=== PATIENT | male | born 1975 | race Caucasian/White ===

== ENCOUNTER 2018-10-26 13:04 | Emergency (ER) | payer MEDICAID ==
[2018-10-26 13:17] VITALS: BP 164/118
[2018-10-26] MEDS ORDERED: LISINOPRIL 5 MG TABLET PO STA (13:31)
--- NOTE | 2018-10-26 13:51 | ED Physician Documentation ---
PD HPI HEADACHE - Stated complaint Stated Complaint: HEADACHE - Chief complaint Chief Complaint: Neuro - History obtained from History obtained from: Patient - History of Present Illness Timing - onset: How many weeks ago (1) Timing - onset during: Rest Timing - duration: Weeks (1) Timing - details: Gradual onset, Still present, Waxing and waning Worst headache ever?: No: Worst headache ever? Location: Front, Right Quality: Throbbing Associated symptoms: No: Fever, Stiff neck, Nausea, Vomiting Improved by: Rest Similar symptoms before: Has not had sx before Recently seen: Not recently seen - Additional information Additional information: 43-year-old male with history of hypertension has been off of his lisinopril for the past 3 weeks he is recently moved to the area has not reestablished care. He has developed headache associated with this. He has some throbbing in the right hemicranial area he has no other specific symptoms she is not nauseated he does not have photophobia or numbness or tingling. Review of Systems Constitutional: denies: Fever Eyes: denies: Decreased vision Ears: denies: Ear pain Nose: denies: Rhinorrhea / runny nose, Congestion Throat: denies: Sore throat Cardiac: denies: Chest pain / pressure, Palpitations Respiratory: denies: Dyspnea, Cough GI: denies: Abdominal Pain, Nausea, Vomiting : denies: Dysuria, Frequency Skin: denies: Rash Musculoskeletal: denies: Neck pain, Back pain, Extremity pain Neurologic: reports: Headache. denies: Generalized weakness, Focal weakness, Numbness, Head injury, LOC PD PAST MEDICAL HISTORY - Past Medical History Past Medical History: Yes Cardiovascular: Hypertension - Present Medications Home Medications: Ambulatory Orders Medication Instructions Recorded Confirmed Lisinopril 40 mg PO DAILY #30 tablet 10/26/18 Lisinopril [Prinivil] 20 mg PO DAILY 10/26/18 10/26/18 - Allergies Allergies/Adverse Reactions: Allergies Allergy/AdvReac Type Severity Reaction Status Date / Time No Known Drug Allergies Allergy Verified 10/26/18 13:17 - Social History Does the pt smoke?: No Smoking Status: Never smoker PD ED PE NORMAL - Vitals Vital signs reviewed: Yes (hypertensive marked diastolic ) - General General: Alert and oriented X 3, No acute distress, Well developed/nourished - HEENT HEENT: Atraumatic, PERRL, EOMI, Ears normal, Moist mucous membranes, Pharynx benign, Dentition benign - Neck Neck: Supple, no meningeal sign, No bony TTP - Cardiac Cardiac: RRR, No murmur - Respiratory Respiratory: No respiratory distress, Clear bilaterally - Abdomen Abdomen: Soft, Non tender - Back Back: No CVA TTP, No spinal TTP - Derm Derm: Normal color, Warm and dry, No rash - Extremities Extremities: No deformity, No edema - Neuro Neuro: Alert and oriented X 3, solderer 2-12 intact, No motor deficit, No sensory deficit, Normal speech Eye Opening: Spontaneous Motor: Obeys Commands Verbal: Oriented GCS Score: 15 - Psych Psych: Normal mood, Normal affect Results - Vitals Vitals: Vital Signs - 24 hr 10/26/18 13:15 Temperature 36.4 C L Heart Rate 89 Respiratory 20 Rate Blood Pressure 164/118 H O2 Saturation 98 Oxygen O2 Source Room air PD MEDICAL DECISION MAKING - ED course Complexity details: considered differential, d/w patient, d/w family ED course: 43-year-old male new to the area has run out of his lisinopril he is not been able to get it refilled and he now has headache. He states that his lisinopril never adequately controlled his blood pressure and he brings in a picture of some Norvasc that his mother takes and she is on night lisinopril as well and he states that it took her 2 agents to control her blood pressure. Here in the emergency department the patient is administered lisinopril 40 mg orally and I have asked him to follow-up with a clinic in [place] for reevaluation within the next 3 weeks and to consider at that point an additional agent if he does not have adequate control. Departure - Departure Disposition: Home, Self Care Clinical Impression: HTN (hypertension) Qualifiers: Hypertension type: unspecified Qualified Code(s): I10 - Essential (primary) hypertension Condition: Stable Instructions: ED Hypertension Conf Out Of Control Follow-Up: [facility] [Provider Group] [facility] [Provider Group] Prescriptions: Lisinopril 40 mg PO DAILY #30 tablet
== END 2018-10-26 13:57 | disposition home or self-care (01) ==
LOC: ED 13:04
DX: I10 Essential (primary) hypertension (principal)
CPT/HCPCS: 99281; 99284; A9270

== ENCOUNTER 2019-03-24 12:39 | Emergency (ER) | payer MEDICAID ==
--- NOTE | 2019-03-24 13:24 | ED Physician Documentation ---
History of Present Illness - Stated complaint Stated Complaint: BP MEDS - Chief complaint Chief Complaint: General - History obtained from History obtained from: Patient (43-year-old gentleman with longstanding hypertension. Because of some change in job and insurance he was lost to follow-up and has not had any blood pressure meds in about 3 months. Previously was on lisinopril, 20 mg a day and hydrochlorothiazide. Checked his blood pr essure today and it was high. He is been feeling flushed on and off but denies chest pain, pedal edema, shortness of breath, urinary difficulty.) Review of Systems Constitutional: denies: Fever, Chills, Fatigue Cardiac: denies: Chest pain / pressure, Palpitations Respiratory: denies: Dyspnea, Cough PD PAST MEDICAL HISTORY - Past Medical History Cardiovascular: Hypertension - Present Medications Home Medications: Ambulatory Orders Medication Instructions Recorded Confirmed Lisinopril 20 mg PO DAILY #90 tablet 03/24/19 hydroCHLOROthiazide 25 mg PO DAILY #90 tablet 03/24/19 [Hydrochlorothiazide] - Allergies Allergies/Adverse Reactions: Allergies Allergy/AdvReac Type Severity Reaction Status Date / Time No Known Drug Allergies Allergy Verified 03/24/19 12:48 - Social History Does the pt smoke?: No Smoking Status: Never smoker PD ED PE NORMAL - Vitals Vital signs reviewed: Yes - General General: Alert and oriented X 3, No acute distress - HEENT HEENT: PERRL, EOMI - Neck Neck: Supple, no meningeal sign, No bony TTP - Cardiac Cardiac: RRR, No murmur - Respiratory Respiratory: No respiratory distress, Clear bilaterally - Abdomen Abdomen: Non tender - Extremities Extremities: No edema, No calf tenderness / cord - Neuro Neuro: Alert and oriented X 3, Normal speech Results - Vitals Vitals: Vital Signs - 24 hr 03/24/19 12:46 Temperature 36.8 C Heart Rate 76 Respiratory 18 Rate Blood Pressure 201/99 H O2 Saturation 97 Oxygen O2 Source Room air - EKG (time done) 1324 Rate: Rate (enter#) (72) Rhythm: NSR Watts: Normal Intervals: Normal HI QRS: Normal Ischemia: Normal ST segments Computer interpretation: Agree with computer - Labs Labs: Laboratory Tests 03/24/19 13:25 Sodium 141 Potassium 3.8 Chloride 104 Carbon Dioxide 28 Anion Gap 9.0 BUN 14 Creatinine 1.0 Estimated GFR (MDRD) 81 L Glucose 110 H Calcium 9.6 Departure - Departure Disposition: 01 Home, Self Care Clinical Impression: Essential hypertension Condition: Good Record reviewed to determine appropriate education?: Yes Instructions: DASH Plan Eat Heart Healthy Food, ED Hypertension Conf Out Of Control Follow-Up: [facility] [Provider Group] [facility] [Provider Group] Prescriptions: hydroCHLOROthiazide [Hydrochlorothiazide] 25 mg PO DAILY #90 tablet Lisinopril 20 mg PO DAILY #90 tablet
[2019-03-24 13:41] LABS: CALCIUM 9.6 mg/dL (8.5-10.3)
[2019-03-24 13:53] VITALS: BP 185/110
== END 2019-03-24 13:52 | disposition home or self-care (01) ==
LOC: ED 12:39
DX: I10 Essential (primary) hypertension (principal); T46.4X6A Underdosing of angiotensin-converting-enzyme inhibitors, initial encounter; T50.2X6A Underdosing of carbonic-anhydrase inhibitors, benzothiadiazides and other diuretics, initial encounter; Z91.138 Patient's unintentional underdosing of medication regimen for other reason
CPT/HCPCS: 36415; 80048; 93005; 99283

== ENCOUNTER 2020-01-19 14:42 | Emergency (ER) | payer MEDICAID ==
--- NOTE | 2020-01-19 16:12 | ED Physician Documentation ---
History of Present Illness - Stated complaint Stated Complaint: HIGH BP - Chief complaint Chief Complaint: Cardiac - History obtained from History obtained from: Patient - History of Present Illness Timing: Chronic Pain level max: 0 Pain level now: 0 - Additonal information Additional information: 44-year-old male states that he has chronic hypertension. He was at the orthopedic office today when they took his blood pressure and told him it was high and he needed to go to the emergency department. Patient is fully asymptomatic. No headache. No visual changes. No neurological deficits. No chest pain. No shortness of breath. No other symptoms. He is currently on lisinopril 20 mg daily. He states his normal blood pressure is 170-180 systolic. Review of Systems Constitutional: denies: Fever, Chills Cardiac: denies: Chest pain / pressure Respiratory: denies: Dyspnea PD PAST MEDICAL HISTORY - Past Medical History Cardiovascular: Hypertension - Past Surgical History Past Surgical History: No - Present Medications Home Medications: Ambulatory Orders Medication Instructions Recorded Confirmed lisinopriL [Lisinopril] 20 mg PO DAILY #90 tablet 03/24/19 01/19/20 Lisinopril/Hydrochlorothiazide 1 tab PO DAILY #30 tablet 01/19/20 [Lisinopril-Hctz 20-12.5 mg Tab] - Allergies Allergies/Adverse Reactions: Allergies Allergy/AdvReac Type Severity Reaction Status Date / Time No Known Drug Allergies Allergy Verified 01/19/20 14:48 - Social History Does the pt smoke?: No Smoking Status: Never smoker Does the pt drink ETOH?: Yes Does the pt have substance abuse?: No - Immunizations Immunizations are current?: No PD ED PE NORMAL - Vitals Vital signs reviewed: Yes - General General: Alert and oriented X 3, No acute distress - HEENT HEENT: PERRL, Moist mucous membranes - Neck Neck: Supple, no meningeal sign, No JVD, No bruit - Cardiac Cardiac: RRR, Strong equal pulses - Respiratory Respiratory: No respiratory distress, Clear bilaterally - Abdomen Abdomen: Soft, Non tender, Non distended - Derm Derm: Warm and dry - Extremities Extremities: No edema, No calf tenderness / cord - Neuro Neuro: Alert and oriented X 3 - Psych Psych: Normal mood, Normal affect Results - Vitals Vitals: Vital Signs - 24 hr 01/19/20 01/19/20 14:48 16:21 Temperature 36.8 C 36.9 C Heart Rate 77 73 Respiratory 16 18 Rate Blood Pressure 193/125 H 195/129 H O2 Saturation 97 99 Oxygen O2 Source Room air PD MEDICAL DECISION MAKING - ED course Complexity details: considered differential, d/w patient ED course: Patient with asymptomatic hypertension. Normal physical exam. No emergency medical condition at this time. We will adjust his blood pressure medication and add hydrochlorothiazide to his lisinopril. He will also follow-up with his doctor for further evaluation and care. Patient is well-appearing, nontoxic. Afebrile. No chest pain. No shortness of breath. No evidence of stroke. No loss of vision. Patient counseled regarding signs and symptoms for which I believe and urgent re-evaluation would be necessary. Patient with good understanding of and agreement to plan and is comfortable going home at this time This document was made in part using voice recognition software. While efforts are made to proofread this document, sound alike and grammatical errors may occur. Departure - Departure Disposition: 01 Home, Self Care Clinical Impression: HTN (hypertension) Qualifiers: Hypertension type: unspecified Qualified Code(s): I10 - Essential (primary) hypertension Condition: Good Instructions: ED HTN Established Follow-Up: [facility] [Provider Group] [facility] [Provider Group] Prescriptions: Lisinopril/Hydrochlorothiazide [Lisinopril-Hctz 20-12.5 mg Tab] 1 tab PO DAILY #30 tablet Comments: We will change you to a combination lisinopril and hydrochlorothiazide tablet. Follow-up with a primary care provider within the next week or 2 to further adjust your medications. Return if you develop symptoms such as chest pain, shortness of breath, focal neurological deficits, changes in mental status, severe headaches, etc. Discharge Date/Time: 01/19/20 16:24
[2020-01-19 16:22] VITALS: BP 195/129
== END 2020-01-19 16:24 | disposition home or self-care (01) ==
LOC: ED 14:42
DX: I10 Essential (primary) hypertension (principal)
CPT/HCPCS: 99282; 99284

== ENCOUNTER 2020-02-06 08:00 | Outpatient (CLI) | payer MEDICAID ==
[2020-02-06 18:23] LABS: BASOPHILS # (AUTO) 0.1 10^3/uL (0.0-0.1); BASOPHILS % (AUTO) 0.7 %; EOSINOPHILS # (AUTO) 0.1 10^3/uL (0.0-0.7); HGB - HEMOGLOBIN 15.7 g/dL (14.0-18.0); LYMPHOCYTES # (AUTO) 2.6 10^3/uL (1.5-3.5); LYMPHOCYTES % (AUTO) 29.5 %; MEAN CORPUSCULAR HEMOGLOBIN 29.9 pg (27.0-31.0); MEAN CORPUSCULAR HGB CONC 33.5 g/dL (32.0-36.0); MEAN CORPUSCULAR VOLUME 89.3 fL (80.0-94.0); MEAN PLATELET VOLUME 10.1 fL (7.4-11.4); MONOCYTES # (AUTO) 0.7 10^3/uL (0.0-1.0); MONOCYTES % (AUTO) 7.7 %; NEUTROPHILS # (AUTO) 5.3 10^3/uL (1.5-6.6); NEUTROPHILS % (AUTO) 59.5 %; PLT - PLATELET COUNT 304 10^3/uL (130-450); RED BLOOD COUNT 5.25 10^6/uL (4.70-6.10); RED CELL DISTRIBUTION WIDTH 12.8 % (12.0-15.0); WHITE BLOOD COUNT 8.9 x10^3/uL (4.8-10.8)
[2020-02-06 18:58] LABS: ALBUMIN 4.9 g/dL (3.2-5.5); ALBUMIN/GLOBULIN RATIO 1.4 (1.0-2.2); ALKALINE PHOSPHATASE 65 IU/L (42-121); ALT ALANINE AMINOTRANSFERASE 37 IU/L (10-60); AST ASPARTATE AMINOTRANSFERASE 27 IU/L (10-42); BILIRUBIN,TOTAL 0.7 mg/dL (0.2-1.0); BUN - BLOOD UREA NITROGEN 16 mg/dL (6-20); CALCIUM 10.2 mg/dL (8.5-10.3); CARBON DIOXIDE - CO2 26 mmol/L (21-32); CHLORIDE 98 mmol/L (101-111); CHOL/HDL RATIO 5.1 (<5.0); CHOLESTEROL 240 mg/dL; GLUCOSE 98 mg/dL (70-100); HDL CHOLESTEROL 47 mg/dL; LDL CHOLESTEROL,CALCULATED 163 mg/dL; LDL/HDL RATIO 3.5 (<3.6); SODIUM 136 mmol/L (135-145); TOTAL PROTEIN 8.3 g/dL (6.7-8.2); VLDL CHOLESTEROL 30 mg/dL
== END 2020-02-06 23:59 | disposition home or self-care (01) ==
LOC: LAB.WCP 08:00
PROVIDERS: ATTEND Family Medicine
DX: Z00.00 Encounter for general adult medical examination without abnormal findings (principal); I10 Essential (primary) hypertension
CPT/HCPCS: 36415; 80050; 80061; 83721

== ENCOUNTER 2020-05-21 09:34 | Outpatient (CLI) | payer MEDICAID ==
[2020-05-21 10:11] VITALS: BP 150/100
--- NOTE | 2020-05-21 10:11 | SLEEP CARE CONSULTATION ---
Information from patient questionnaire entered by Kavita Monique. I have reviewed and concur with the information entered by Kavita Monique. This document represents the service I personally performed and the decisions made by me, Thalia Dumas ARNP. History of Present Illness Service Date and Time: 05/21/2020 0934 Reason for Visit: New patient Chief Complaint: reports: Unrefreshed sleep, Snoring, Observed pauses in breathing, Frequent awakenings at night, Other (nose bleeds for 13 yrs) Date of Onset: 30 years Usual bedtime: 10 pm Time it takes to fall asleep: 40 minutes Snores at night: Yes Observed to quit breathing while asleep: Yes Number of times waking at night: 2 Reasons for waking at night: reports: Snoring (according to but he doesn't remember), Bathroom. denies: Choking, Gasping for air Toss, Turn, or Twitch while sleeping: No Recalls having dreams: Yes Usually gets out of bed at: 6:30 am Feels refreshed in the morning: No Morning headache: No Sleepy or fatigued during the day: Yes Ever fallen asleep while driving: No Takes day naps: No Dreams during day naps: No Prior sleep studies: No Additional HPI information: I had the pleasure of seeing TREY HAGEN today regarding the possibility of him having a sleep disorder. His current complaint is snoring. He states he has had bloody noses for the last 13 years. He told his PCP and was referred to an ENT and here for evaluation of snoring. His tells him he snores and has pauses in breathing while sleeping. He has hypertension and is currently on 3 different blood pressure medications to try to control it. 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 Patient is and lives in [place]. Have you smoked in the past 12 months: No Alcohol use: Yes Alcohol amount and frequency: 2 drinks once per week Caffeine use: No Family History Family history of sleep disordered breathing: No Family Hx Sleep Apnea: Father: Snoring Allergies and Home Medications Drug allergies reviewed: Yes (NKDA) Home medication list reviewed: Yes Allergy and home medication list: Lisinopril Hydrochlorothiazide Metroprolol Review of Systems Weight loss over past 5 years: 10 Cardiovascular: reports: high blood pressure Gastrointestinal: denies: heartburn Neurological: denies: headaches Psychiatric: denies: anxiety, depression Ear/Nose/Throat: reports: nose bleeds (once a week), dry mouth/throat (all day/all night). denies: tonsillectomy, wisdom teeth removed Immunologic: denies: allergies to food or environment Physical Exam Blood Pressure: 150/100 (hx of htn) Cuff size: wrist Heart Rate: 59 O2 Saturation: 98 Height: 5 ft 8 in Weight: 253 lb Body Mass Index: 38.5 BMI Classification: Obese Neck circumference: 17.75 (inches) Nostrils: patent to airflow Turbinates: normal Mouth and throat: narrow oropharynx Soft palate: long Hard palate: normal Uvula: normal Uvula visualization: 100% Mallampati Class I Tongue: normal in size Tonsils: 2+ Chin and jaw: normal size and position Neck: normal w/o lymphadenopathy or thyromegaly Heart: regular rate and rhythm Lungs: clear bilaterally Impression and Plan 1. Suspected Obstructive Sleep Apnea-Hypopnea Syndrome, as suggested by a history of loud and irregular snoring, observed cessation of breath while asleep, frequent awakening during the night, unrefreshed sleep, and cognitive impairment. Narrow oropharynx and obesity are common predisposing factors for obstructive sleep apnea-hypopnea syndrome. I recommend proceeding to polysomnography to confirm the diagnosis and to assess severity. If the patient has significant sleep disordered breathing, a manual CPAP titration study will also be performed to find the optimal treatment pressure. I informed the patient of what the sleep studies involve and after some discussion, obtained agreement to proceed. The pathophysiology of obstructive sleep apnea-hypopnea syndrome was discussed with the patient and health risks of cardiovascular and cerebrovascular disease if not treated. AAS brochure for obstructive sleep apnea-hypopnea syndrome given and reviewed. Risks of drowsy driving discussed in detail and patient advised to avoid long distance driving and to heat treat puller at the first sign of drowsiness. Patient agreed to plan. * Schedule polysomnography +- manual CPAP titration study and return in 1-2 weeks after the study to discuss result and initiate therapy. * Avoid long distance driving or driving when feeling sleepy. * Avoid alcohol, sedative and muscle relaxant around bedtime. * Attempt to lose weight. * Review instructions provided by trained office staff on how to prepare for the sleep study. * Return for follow-up after sleep study completed. Counseling Topics: Weight loss health impact Visit Type: In Office Time Spent with Patient (minutes): 30 Provider Statement: I spent 100% of the Face to Face Visit with the patient with greater than 50% spent counseling the patient and coordination of care.
== END 2020-05-21 09:35 | disposition home or self-care (01) ==
LOC: SC 09:34
PROVIDERS: ATTEND Nurse Practitioner Family
DX: R06.81 Apnea, not elsewhere classified (principal); R06.83 Snoring; G47.8 Other sleep disorders; R41.89 Other symptoms and signs involving cognitive functions and awareness; E66.9 Obesity, unspecified; Z68.38 Body mass index [BMI] 38.0-38.9, adult
CPT/HCPCS: 99203; 99212